=== PATIENT | male | born 1965 | race Hispanic/Latino ===

== ENCOUNTER 2022-01-31 17:00 | Inpatient (IN) | payer OTHER, BC ==
[2022-01-31] MEDS ORDERED: Morphine 4 MG/ML VIAL ONE (17:58)
[2022-01-31] MEDS ORDERED: Ondansetron PF 4 MG/2 ML Vial IVP PRN (18:02)
[2022-01-31] MEDS ORDERED: hydrALAZINE 20 MG/ML VIAL SLOW IVP PRN (18:02)
[2022-01-31] MEDS ORDERED: Promethazine HCl 25 MG/ML VIAL IM PRN (18:02)
[2022-01-31] MEDS ORDERED: Cyclobenzaprine 10 MG TAB PO PRN (18:05)
[2022-01-31] MEDS ORDERED: traMADol HCl 50 MG TAB PO PRN (18:05)
[2022-01-31] MEDS ORDERED: TETANUS, DIPHTHERIA TOX,ADULT (TDVAX) 0.5 ML VIAL IM ONE (18:06)
[2022-01-31] MEDS ORDERED: Ketorolac Tromethamine 30 MG/ML VIAL IVP SCH ×2 (18:15→23:59)
[2022-01-31 18:16] LABS: #Basophils 0.1 thou/uL (0.0-0.2); #Eosinphils 0.2 thou/uL (0.0-0.7); #Lymphocytes 2.8 thou/uL (1.20-3.40); #Monocytes 0.6 thou/uL (0.11-0.59); #Neutrophils 4.3 thou/uL (1.40-6.50); %Eosinophils 2.8 % (0.0-10.0); %Monocytes 7.1 % (0.0-10.0); Mean Corpuscular HGB CONC 34.3 g/dL (32.0-36.0); Mean Corpuscular Hemoglobin 32.1 pg (27.0-31.0); Mean Corpuscular Volume 93.4 fL (78.0-98.0); Mean Platelet Volume 7.8 fL (7.4-10.4); Platelet Count 253 thou/uL (130-400); RBC Distribution Width 12.1 % (11.5-14.5)
[2022-01-31 18:25] LABS: INR-International Normal Ratio 1.2
[2022-01-31 18:26] LABS: PTT 29.4 sec (22.9-36.1)
[2022-01-31 18:34] LABS: ALT (SGPT) 72 U/L (8-55); AST (SGOT) 42 U/L (5-34); Albumin 4.2 g/dL (3.5-5.0); Alkaline Phosphatase 94 U/L (40-110); Anion Gap 13 mmol/L (10-20); BUN (Urea Nitrogen) 19 mg/dL (8.4-25.7); Bilirubin, Direct 0.2 mg/dL (0.1-0.3); Bilirubin, Total 0.6 mg/dL (0.2-1.2); Calc. Creatinine Clearance 0 mL/min (70-130); Carbon Dioxide 24 mmol/L (22-29); Chloride 101 mmol/L (98-107); Glucose 388 mg/dL (70-105); Phosphorus 3.1 mg/dL (2.3-4.7); Potassium 4.2 mmol/L (3.5-5.1); Protein, Total 7.5 g/dL (6.0-8.3); Sodium 134 mmol/L (136-145)
[2022-01-31] MEDS ORDERED: Boostrix 0.5 ML (Tdap) VIAL ONE (18:37)
[2022-01-31] MEDS: Sodium Chloride 0.9% 1,000 ML IV SCH (21:06)
[2022-01-31] MEDS: Famotidine 20 MG TAB PO SCH (21:06)
[2022-01-31] MEDS: Senokot S 8.6-50 MG TAB PO SCH (21:07)
[2022-01-31] MEDS ORDERED: ceFAZolin (BATCH) 2 GM in Premix Bag 1 BAG IVPB SCH (22:00)
[2022-01-31 22:18] VITALS: BMI 34.2
[2022-01-31] MEDS ORDERED: CEFAZOLIN 2 GM in Sodium Chloride 0.9% 100 ML IVPB SCH (22:45)
[2022-01-31] MEDS: Morphine 2 MG/ML VIAL SLOW IVP PRN (23:10)
[2022-01-31] MEDS: Acetaminophen 500 MG TAB PO SCH (23:23)
[2022-01-31] MEDS: traMADol HCl 50 MG TAB PO SCH (23:42)
[2022-02-01 00:12] LABS: SARS-CoV-2 PCR by NAA Not Detected (NotDetected)
[2022-02-01] MEDS ORDERED: Sodium Chloride 0.9% 1,000 ML IV SCH (01:45)
[2022-02-01] MEDS: Morphine 2 MG/ML VIAL SLOW IVP PRN ×2 (02:35→06:29)
[2022-02-01] MEDS: Sodium Chloride 0.9% 1,000 ML IV SCH ×2 (04:26→11:26)
[2022-02-01] MEDS ORDERED: CEFAZOLIN 2 GM in Sodium Chloride 0.9% 100 ML IVPB SCH ×3 (06:00→16:00)
[2022-02-01] MEDS: traMADol HCl 50 MG TAB PO SCH ×2 (06:19→11:22)
[2022-02-01] MEDS: Acetaminophen 500 MG TAB PO SCH ×2 (06:19→11:24)
[2022-02-01 06:23] LABS: Anion Gap 10 mmol/L (10-20); BUN (Urea Nitrogen) 16 mg/dL (8.4-25.7); Calc. Creatinine Clearance 122 mL/min (70-130); Carbon Dioxide 27 mmol/L (22-29); Chloride 104 mmol/L (98-107); Glucose 194 mg/dL (70-105); Potassium 3.6 mmol/L (3.5-5.1); Sodium 137 mmol/L (136-145)
[2022-02-01] MEDS ORDERED: ceFAZolin 2 GM/Dextrose 50 ML 2 GM in Premix Bag 1 BAG IVPB SCH (07:15)
[2022-02-01] MEDS ORDERED: CEFAZOLIN 2 GM VIAL ONE ×2 (07:47→07:53)
[2022-02-01] MEDS ORDERED: Sodium Chloride 0.9% 100 ML ONE ×2 (07:47→07:53)
[2022-02-01] MEDS ORDERED: SUGAMMADEX SODIUM 200 MG/2 ML VIAL ONE (08:00)
[2022-02-01] MEDS ORDERED: fentaNYL Citrate/PF 100 MCG/2 ML SYRINGE ONE ×2 (08:00)
[2022-02-01] MEDS ORDERED: ePHEDrine 50 MG/ML VIAL ONE (08:10)
[2022-02-01] MEDS ORDERED: Dexamethasone 20 MG/5 ML VIAL ONE (08:10)
[2022-02-01] MEDS ORDERED: PROPOFOL 200 MG/20 ML VIAL ONE (08:10)
[2022-02-01] MEDS ORDERED: Ondansetron PF 4 MG/2 ML Vial ONE (08:10)
[2022-02-01] MEDS ORDERED: Lidocaine 1% PF 5 ML VIAL ONE (08:10)
[2022-02-01] MEDS ORDERED: Rocuronium Bromide 10 MG/ML (10ML VIAL) ONE (08:10)
[2022-02-01] MEDS ORDERED: Succinylcholine 200 MG/10 ml SYRINGE FS ONE (08:10)
[2022-02-01] MEDS ORDERED: Ketorolac Tromethamine 30 MG/ML VIAL ONE (08:10)
[2022-02-01] MEDS ORDERED: Glycopyrrolate 0.2 MG/ML 5 ML SYRINGE ONE (08:10)
[2022-02-01] MEDS ORDERED: Polyethylene Glycol 3350 17 GM Packet PO SCH (09:00)
[2022-02-01] MEDS ORDERED: Fentanyl 100 MCG/2 ML VIAL ONE (09:47)
[2022-02-01] MEDS: Famotidine 20 MG TAB PO SCH (10:29)
[2022-02-01] MEDS: Senokot S 8.6-50 MG TAB PO SCH (10:30)
[2022-02-01 17:25] VITALS: BP 125/78; TEMP 98.1
== END 2022-02-01 16:15 | disposition home or self-care (01) | DRG 493 ==
LOC: ERS 17:00 → SURG A 18:02
PROVIDERS: ADMIT Surgery; ATTEND Surgery
PROC: 0QSG06Z Reposition Right Tibia with Intramedullary Internal Fixation Device, Open Approach (ICD-10-PCS; principal; 2022-02-01)
DX: S82.221A Displaced transverse fracture of shaft of right tibia, initial encounter for closed fracture (principal); N17.9 Acute kidney failure, unspecified; Z20.822 Contact with and (suspected) exposure to COVID-19; Z23 Encounter for immunization; N18.9 Chronic kidney disease, unspecified; Z88.5 Allergy status to narcotic agent; V23.4XXA Motorcycle driver injured in collision with car, pick-up truck or van in traffic accident, initial encounter; Y92.410 Unspecified street and highway as the place of occurrence of the external cause
CPT/HCPCS: 29505; 36415; 71045; 76000; 80048; 80076; 83735; 84100; 85025; 85610; 85730; 86850; 86900; 86901; 90471; 90715; 93005; 93010; 96374; C1713; G0390; J1100; J1885; J2270; J2405; J2704; J3010; J3490; J7050; U0003; U0005